=== PATIENT | female | born 1995 | race Asian ===

== ENCOUNTER 2021-10-12 08:35 | Emergency (ER) | payer OTHER ==
[~2021-10-12] VITALS: Ht 170.2 cm; Wt 84.4 kg
[2021-10-12 08:45] VITALS: BP 119/84; TEMP 97.2
== END 2021-10-12 09:29 | disposition home or self-care (01) ==
LOC: ED 08:35
PROC: 2W2CX4Z Dressing of Right Lower Arm using Bandage (ICD-10-PCS; principal; 2021-10-12)
DX: T22.211A Burn of second degree of right forearm, initial encounter (principal); T31.0 Burns involving less than 10% of body surface; X10.2XXA Contact with fats and cooking oils, initial encounter; Y93.G3 Activity, cooking and baking; Y92.098 Other place in other non-institutional residence as the place of occurrence of the external cause
CPT/HCPCS: 90715; 99282

== ENCOUNTER 2021-11-18 09:51 | Emergency (ER) | payer OTHER ==
[~2021-11-18] VITALS: Ht 170.2 cm; Wt 84.4 kg
[2021-11-18 10:05] LABS: PLATELET COUNT 370 K/uL (152-353)
[2021-11-18 10:37] LABS: POTASSIUM 3.5 mmol/L (3.6-5.2); SODIUM 131 mmol/L (136-145)
[2021-11-18 11:00] VITALS: TEMP 99
[2021-11-18 12:00] VITALS: BP 128/72
== END 2021-11-18 12:48 | disposition home or self-care (01) ==
LOC: ED 09:51
PROVIDERS: Emergency Medicine
DX: E11.65 Type 2 diabetes mellitus with hyperglycemia (principal); Z79.4 Long term (current) use of insulin; R50.9 Fever, unspecified
CPT/HCPCS: 36600; 80053; 81002; 81015; 81025; 82805; 82948; 83605; 84484; 85027; 93005; 96360; 96374; 99284; J1815